=== PATIENT | male | born 1985 | race Caucasian/White ===

== ENCOUNTER 2022-08-22 18:37 | Emergency (ER) | payer OTHER, SELFPAY ==
[2022-08-22 18:46] VITALS: BP 123/80; PULSE 64; RESP 20; TEMP 37; O2SAT 99
--- NOTE | 2022-08-22 18:56 | ED.URI ---
HPI - URI/Sore Throat General Chief Complaint: Upper Respiratory Infection Stated Complaint: jaw and facial pressure Source: patient and RN notes reviewed History of Present Illness HPI Narrative: 37-year-old male presents to urgent care with complaints of pressure in his face and forehead as well as congestion for the last week. Patient states he sinus infections often. Patient reports some right ear pain. Denies any fevers, chills, chest pain, shortness of breath, vomiting or diarrhea. Patient has taken Sudafed at home without any relief. Some parts of this dictation were generated by voice recognition software and may contain typographical and/or grammatical inaccuracies. Related Data Allergies Allergy/AdvReac Type Severity Reaction Status Date / Time No Known Allergies Allergy Verified 08/22/22 18:54 Review of Systems Review of Systems: CONSTITUTIONAL: Denies fever, chills, or sweats. EYES: Denies visual changes, redness, or discharge. ENT: Reports facial pressure and congestion CARDIOVASCULAR: Denies chest pain, palpitations, or edema. RESPIRATORY: Denies cough or dyspnea. GASTROINTESTINAL: Denies abdominal pain, nausea, vomiting, or diarrhea. GENITOURINARY: Denies dysuria or hematuria. SKIN: Denies rash or itching. MUSCULOSKELETAL: Denies back pain, joint pain, or myalgia. NEUROLOGIC: Denies headache, numbness, or weakness. PMFSH Comments At the time of my signature, I reviewed and agree with the nursing past medical, surgical, social, and family history. There is no relevant family history pertinent to the patient complaint. Exam Narrative: GENERAL: This is a well-nourished, well-developed patient, in no apparent distress. HEAD: normocephalic, atraumatic. EYES: PERRL. Sclera clear/white. Vision is grossly intact. EARS: External ears normal, auditory canals clear and without drainage, TMs normal without perforation. Hearing grossly intact. NOSE: External nose normal with no obvious nasal discharge, nares without redness, no rhinorrhea. THROAT: Mucous membranes moist, posterior pharynx clear. NECK: Neck supple, non-tender without lymphadenopathy, masses or thyromegaly. CARDIOVASCULAR: Regular rate and rhythm without murmurs, gallops, or rubs. RESPIRATORY: Clear to auscultation. Breath sounds equal bilaterally. No wheezes, rales, or rhonchi. GASTROINTESTINAL: Abdomen soft, non-tender, nondistended. Bowel sounds are active. No hepato-splenomegaly, or palpable masses. No guarding. SKIN: warm, intact with no suspicious lesions or rash, good texture and turgor. NEURO: awake, alert, and oriented to person, place and time. There were no obvious focal neurologic abnormalities. Course Course Level of Care: Express Care Visit Vital Signs Vital signs: Vital Signs Temperature 98.6 F 08/22/22 18:46 Pulse Rate 64 08/22/22 18:46 Respiratory Rate 20 08/22/22 18:46 Blood Pressure 123/80 08/22/22 18:46 Pulse Oximetry 99 08/22/22 18:46 Oxygen Delivery Room Air 08/22/22 18:46 Temperature 98.6 F 08/22/22 18:46 Pulse Rate 64 08/22/22 18:46 Respiratory Rate 20 08/22/22 18:46 Blood Pressure 123/80 08/22/22 18:46 Pulse Oximetry 99 08/22/22 18:46 Oxygen Delivery Room Air 08/22/22 18:46 Reviewed MDM - URI/Sore Throat MDM Narrative Medical decision making narrative: Return to urgent care or go to the ER for new or worsening symptoms. Avoid smoking/second-hand smoke. Continue to take Tylenol or Motrin for pain. Increase your Vitamin C intake. Use a humidifier or vaporizer at night. Take Medications as prescribed. Drink plenty of water. 8-10 glasses per day. Use flonase 2 times per day for 5 days then as needed Take mucinex 2 times per day and be sure to take with 8oz of water. Follow up with Primary provider if not getting better. Go to the ER for new or worsening symptoms. Differential Diagnosis Differential diagnosis: Likely upper respiratory infection, otitis media, si
== END 2022-08-22 19:04 | disposition home or self-care (01) ==
PROVIDERS: Emergency Provider Nurse Practitioner Family; PCP Internal Medicine
DX: J01.10 Acute frontal sinusitis, unspecified (principal)
CPT/HCPCS: 99213; G0463

== ENCOUNTER 2022-11-05 14:00 | Emergency (ER) | payer OTHER, SELFPAY ==
[2022-11-05 14:05] VITALS: BP 139/84; PULSE 58; RESP 16; TEMP 36.9; O2SAT 100
--- NOTE | 2022-11-05 15:42 | ED.URI ---
HPI - URI/Sore Throat General Chief Complaint: Upper Respiratory Infection Stated Complaint: cold/sinus Time Seen by Provider: 11/05/22 15:40 Source: patient, RN notes reviewed and old records reviewed Mode of arrival: ambulatory Limitations: no limitations History of Present Illness HPI Narrative: 37 year old male who presents to [facility] with complaints of cold/sinus congestion with some difficulty with breathing stated and pain under left ear for the past 2 days.. Patient reports that he has not had any known fevers, chills or body aches. Patient reports that he has had some pressure and pain to his cheeks. Patient has taken Advil for his discomfort has not taken any OTC sinus medications Patient has even and nonlabored respirations, with no tachypnea with SAO2 100% on room air. Patient reports no pertinent past medical or surgical history. MD elicited complaint: rhinorrhea, nasal congestion and other (pain under left ear and some dyspnea.) Onset (ago): day(s) (2) Pain scale (0-10): 7 Treatments prior to arrival: ibuprofen Related Data Allergies Allergy/AdvReac Type Severity Reaction Status Date / Time No Known Allergies Allergy Verified 11/05/22 14:08 Review of Systems Review of Systems: CONSTITUTIONAL: Denies malaise, chills, sweats, or fever. EYES: Denies visual changes, redness, or discharge. ENT: Reports rhinorrhea, congestion, sinus pain to cheeks,under left ear pain, no sore throat. CARDIOVASCULAR: Denies chest pain, palpitations, or edema. RESPIRATORY: Reports cough.? reports some dyspnea. GASTROINTESTINAL: Denies abdominal pain, nausea, vomiting, diarrhea SKIN: Denies rash or itching. MUSCULOSKELETAL: Denies myalgia. NEUROLOGIC: Denies headache. All systems reviewed & are unremarkable except as noted in HPI and below PMFSH Social History Social History (Updated 11/07/22 @ 14:44 by Candace Wood NP) Smoking status: Current every day smoker Tobacco type: e-cigarettes/vaping Substance use: current Last use: rare social Gender identity (if verbalized by the patient): Male Comments At time of signature, agree with nursing past medical, surgical, social and family history. There is no relevant family history pertinent to the presenting complaint Exam Narrative: GENERAL: Well-appearing, well-nourished, and in no acute distress. HEAD: Normocephalic EYES: PERRLA, conjunctivae clear ENT: Nares clear, turbinates edematous and erythematous, clear discharge.reports sinus pressure to cheeks, Mucous membranes moist. TM pearly burns with dull light reflex bilaterally; no tragal tenderness. Oropharynx erythematous without lesions. Tonsils not enlarged and without exudate, no drooling, no hoarseness, no trismus, uvula midline. NECK: Supple. No lymphadenopathy CHEST: Clear to auscultation, breath sounds equal. No wheezing, rhonchi, rales, or stridor. No respiratory distress, speaks in full sentences.dry cough, SAO2 100% on room air HEART: Regular rate and rhythm. No murmur heard. SKIN: Warm, dry, no rash NEURO: Alert and oriented x3. PSYCH: Normal mood and affect Course Course Emergency Course: Patient is aware of diagnosis, understands and agrees to treatment plan.? Anticipatory guidance given.? Patient agrees to follow-up as directed and is aware of reasons to seek care at the emergency department. Portions of this record may have been created with voice recognition software Level of Care: Express Care Visit Vital Signs Vital signs: Vital Signs Temperature 36.9 C 11/05/22 14:05 Pulse Rate 58 L 11/05/22 14:05 Respiratory Rate 16 11/05/22 14:05 Blood Pressure 139/84 11/05/22 14:05 Pulse Oximetry 100 11/05/22 14:05 Oxygen Delivery Room Air 11/05/22 14:05 Temperature 36.9 C 11/05/22 14:05 Pulse Rate 58 L 11/05/22 14:05 Respiratory Rate 16 11/05/22 14:05 Blood Pressure 139/84 11/05/22 14:05 Pulse Oximetry 100 11/05/22 14:05 Oxyg
== END 2022-11-05 16:11 | disposition home or self-care (01) ==
PROVIDERS: Emergency Provider Registered Nurse; PCP Internal Medicine
DX: J06.9 Acute upper respiratory infection, unspecified (principal); R05.2 Subacute cough; F17.290 Nicotine dependence, other tobacco product, uncomplicated
CPT/HCPCS: 99213; G0463